=== PATIENT | male | born 1985 | race Caucasian/White ===

== ENCOUNTER 2018-06-09 13:54 | Inpatient (IN) | payer MEDICARE, MEDICAID ==
--- NOTE | 2018-06-09 14:56 | ED ---
Psychiatric Complaint - HPI Summary HPI Summary: Patient is a 32 y/o M presenting to ED under 945 status with [employer] for MHE. Patient is on Abilify but states that he has stopped taking his medication for the past two weeks due to the medication's effects. He states that he is unsure why he was brought in to be evaluated. The patient does claim that he has "attitude" problems and will "say things" when he is confronted by people and when he thinks people are "stalking" him. He is unsure who could have called the police about him. Patient is reluctant to given blood as he is on a vegan diet. Patient does note that he has eaten food today. No thoughts of SI/HI are reported. Patient reports that he smokes a pack of cigarettes a day, endorses rare alcohol usage and denies substance usage. However, sports equipment racker Hina notes that the patient has a history of substance abuse, known schizophrenia, and that the patient has had SI in the past. Patient lives alone in apartment. He denies abdominal pain and trauma. He additionally denies drug allergies and past surgeries in the room. On triage, pain is denied, nothing is noted to aggravate/alleviate Sx. Home medications and allergies are reviewed. - History Of Current Complaint Chief Complaint: EDMentalHealth Time Seen by Provider: 06/09/18 14:34 Hx Obtained From: Patient Onset/Duration: Still Present Timing: Constant Severity Currently: None - pain denied Aggravating Factor(s): Nothing Alleviating Factor(s): Nothing Associated Signs And Symptoms: Positive: Negative Has Suicidal: Denies: Thoughts Has Homicidal: Denies: Thoughts - Allergies/Home Medications Allergies/Adverse Reactions: Allergies Allergy/AdvReac Type Severity Reaction Status Date / Time nut - unspecified Allergy Severe Airway Verified 06/09/18 15:55 Obstruction shellfish derived Allergy Airway Verified 06/09/18 15:54 Obstruction Home Medications: Home Medications NK [No Home Medications Reported] 06/09/18 [History Confirmed 06/09/18] PMH/Surg Hx/FS Hx/Imm Hx Endocrine/Hematology History: Denies: Hx Anticoagulant Therapy, Hx Diabetes, Hx Thyroid Disease Cardiovascular History: Denies: Hx Hypertension, Hx Pacemaker/ICD Respiratory History: Denies: Hx Asthma, Hx Chronic Obstructive Pulmonary Disease (COPD) History: Denies: Hx Renal Disease Neurological History: Denies: Hx Dementia, Hx Seizures Psychiatric History: Reports: Hx Anxiety, Hx Depression, Hx Inpatient Treatment , Hx Community Mental Health Tx, Hx Schizophrenia, Hx Suicide Attempt - 3 years ago, Hx Substance Abuse, Other Psychiatric Issues/Disorders - schizoaffective Denies: Hx Eating Disorder, Hx of Violent Episodes Against Others Infectious Disease History: No Infectious Disease History: Reports: Hx Hepatitis Denies: Hx Human Immunodeficiency Virus (HIV), Traveled Outside the [place] in Last 30 Days - Family History Known Family History: Positive: Hypertension - Social History Alcohol Use: Rare Substance Use Type: Reports: None Smoking Status (MU): Light Every Day Tobacco Smoker Type: Cigarettes Amount Used/How Often: 1/2 ppd Have You Smoked in the Last Year: Yes Review of Systems Negative: Abdominal Pain Musculoskeletal: Other - NEGATIVE - RECENT TRAUMA Psychological: Other - PATIENT DENIES SI/HI All Other Systems Reviewed And Are Negative: Yes Physical Exam Vital Signs On Initial Exam: Initial Vitals Temp Pulse Resp BP Pulse Ox 99.4 F 94 16 122/84 100 06/09/18 14:06 06/09/18 14:06 06/09/18 14:06 06/09/18 14:06 06/09/18 14:06 Diagnostics - Vital Signs Vital Signs Temp Pulse Resp BP Pulse Ox 06/09/18 14:06 99.4 F 94 16 122/84 100 - Laboratory Lab Statement: Any lab studies that have been ordered have been reviewed, and results considered in the medical decision making process. Re-Evaluation - Re-Evaluation First Eval Re-Evaluation Time: 15:15 Comment: sports equipment racker Hina has spoken to patient's mother,who was the one who called police. Mother reported that the patient has actually stopped taking his medication months ago. He has since become increasingly paranoid and aggressive, laughing to himself, ranting/rambling in public areas, yelling slurs at people, trashing his apartment, and walking into traffic. Course/Dx - Differential Dx/Clinical Impression Provider Diagnosis: Schizophrenia - Physician Notifications Discussed Care Of Patient With: Yosef Abbasi Time Discussed With Above Provider: 15:48 Instructed by Provider To: Other - Patient's case was reviewed by Dr. Abbasi, patient will be admitted to [facility] under 939 status. Discharge - Sign-Out/Discharge Documenting (check all that apply): Patient Departure - admit Patient Received Moderate/Deep Sedation with Procedure: No - Discharge Plan Condition: Good Disposition: PSYCHIATRIC FACILITY-[facility] Referrals: No Primary Care Phys,NOPCP [Primary Care Provider] - - Attestation Statements Document Initiated by Scribe: Yes Documenting Scribe: CEE DUDLEY Provider For Whom Scribe is Documenting (Include Credential): ADEBAYO RASHEED MD Scribe Attestation: ICEE, scribed for ADEBAYO RASHEED MD on 06/09/18 at 1701. Status of Scribe Document: Ready
[2018-06-09] MEDS ORDERED: Acetaminophen TAB* 325 MG PO PRN (15:45)
[2018-06-09] MEDS ORDERED: Al Hydrox/Mg Hydrox/Simet LIQ* 30 ML UDC PO PRN (15:45)
[2018-06-09] MEDS ORDERED: Haloperidol TAB* 5 MG PO PRN (15:48)
[2018-06-09] MEDS ORDERED: LORazepam TAB(*) 1 MG PO PRN (15:48)
[2018-06-09] MEDS ORDERED: ARIPiprazole TAB* 15 MG PO ONE (15:49)
--- NOTE | 2018-06-10 18:02 | HP ---
PSYCHIATRIC HISTORY AND PHYSICAL: DATE OF ADMISSION: 06/09/18 JUSTIFICATION FOR ADMISSION: The patient is in need of 24-hour supervision and care secondary to psychotic disorganization and inability to care for himself in a less restrictive setting. CHIEF COMPLAINT: "I don't feel like I need to be here, I don't feel like I need to conform to society's expectations." HISTORY OF PRESENT ILLNESS: The patient is a 32-year-old single, homosexual, male with a history of schizoaffective disorder, who was brought in by the police on a 9.45 legal status initiated by the [facility] due to increasingly erratic psychotic behavior in the context of nonadherence with injectable antipsychotic since February 2018. Before meeting the patient I reached out to his therapist at [facility], Ishaan Harkins. That clinician reports that the clinic has been receiving multiple phone calls from concerned citizens who will often interact with the patient in the [facility] where he has been described as provocative, getting into people's personal space, waving his hands at them, making racial slurs, and being generally insultive. There is also a report from the [place] [employer] that he had been observed walking haphazardly in traffic. They also noted that he has been dropping weight and that his apartment is trashed and filled with urine bottles. His last Abilify injection was delivered on 02/26/18 , but thereafter he started refusing to take it. He did contact therapist, Isahan Harkins, to schedule therapy appointments thereafter, but never showed up at the clinic. For collateral I also spoke with the patient's mother, whose name is Grecia Polanco. She reports that for several years, he has been stable on Abilify Maintena injections and that she felt he had earned the right within the last year to start going to those appointments by himself, whereas in the past she used to have to accompany him. She did know that since March, he has been refusing the medications and she did not feel there was anything that she could do. Over the past 3 weeks, she noticed that he started speaking in a strange [place]ots[place] accent and accusing friends of being rapists. He has also been accusing passing motorists of killing Muslims because the oil that pimentel their car was stolen from Islamic countries through war and violence. He has expressed the belief that people were trying to gas him with their cars. The patient has been losing weight and the mother estimates the weight loss to have been approximately 30 pounds. He has been seen in public mumbling to himself, wandering into traffic, laughing one moment hysterically and at other times screaming at others. His mother apparently entered his apartment and noted that several of his belongings had been given away to others prompting her to wonder whether he has become suicidal. She also discovered cigarette joe in the mattress and on his clothing. He had also placed knives in various spots of the apartment, particularly near his bed, and barricaded the front door. The mother had a smith and was able to enter through the back entry way and discovered that there was no food in the apartment, but several empty bottles and containers of liquor and beer. She indicates that the patient has not been sleeping, has been walking miles. This is risky given the fact that he has a history of walking to both [place] and to [facility] before during prior psychotic episodes. She notes that he expresses at times that he can stop traffic with his mind and he screams at his mother that she will be killed by wizards. She discovered journal entries in his apartment that related to the subject of and he had drawn several violent images. When I meet with the patient, he is minimizing all of these reports and states that he does not trust his mother and is not close with her. He does not feel that her concerns are valid. He speaks vaguely about concerns about people damaging the environment and not wanting to exist in a reality that is forced upon him by society. He denies suicidal or homicidal ideations. He denies auditory or visual hallucinations. At times on our unit so far, he is seen responding to internal stimuli, laughing to himself and making odd statements such as that he perceives that staff members have "cat eyes." PAST PSYCHIATRIC HISTORY: Includes somewhere between 10 and 11 lifetime hospitalizations, most of which have been here at [facility]. He has also been hospitalized 3 times at [facility], at least once at [facility] in 2009 which was his first hospitalization, and at least once at [facility] in [place]. His last hospitalization was briefly in 2016 for suicidal ideations. In the past, he has had thoughts of cutting his wrists, although he has no significant attempts. He did use to burn cigarettes on his body. He was followed by the ACT team for 3 years following 2012 and then discharged, was treated at the [facility]. In the past, he has been treated with Risperdal, lithium, Depakote, as well as antidepressants which apparently caused dayanara. SUBSTANCE ABUSE HISTORY: Significant for alcohol abuse, cannabis, LSD, mushrooms, synthetic marijuana. He has used cocaine. He has tried methamphetamines as well as heroin. He smokes 1 or 2 cigarettes per day. He denies any history of rehab or detox treatment. PAST MEDICAL HISTORY: Noncontributory. FAMILY HISTORY: Denied by the patient. SOCIAL HISTORY: The patient was born and raised in [place], raised by both parents. He has an older sister, who is 4 years older. He did graduate from high school and studied journalism at [employer] for 2 years, but does not work. He identifies as homosexual, but is not currently in any relationship. He has never been , has no children. He has had periods of homelessness in the past, but currently lives in [facility] in a [address] supported apartment. He has a significant legal history of shoplifting and is well known to the local police department. REVIEW OF SYSTEMS: The patient denies headache or double vision. He denies sore throat, cough, chest pain, difficulty breathing. He denies abdominal pain , nausea, vomiting, diarrhea, or constipation. Denies difficulty ambulating, enlarged lymph nodes, fevers, or rashes. He does acknowledge a 30-pound weight loss, but he states this is because he has converted to a raw vegan diet. PHYSICAL EXAMINATION VITAL SIGNS: The patient's blood pressure is 113/82, heart rate 86, respiratory rate 16, temperature is 98.6 degrees Fahrenheit, oxygen saturations are 100% on room air. HEENT: Head is normocephalic, atraumatic. CHEST: Clear to auscultation bilaterally. CARDIAC: Exam reveals normal heart sounds. ABDOMEN: Soft and nontender. MUSCULOSKELETAL: Exam reveals no sign of edema. NEUROLOGICAL: He is grossly intact with no focal deficits. SKIN: Warm and dry. LABORATORY DATA: The patient has refused both blood and urine lab studies. MENTAL STATUS EXAMINATION: The patient is a young, , part white, part -Bhutanese male with long hair that is tucked under a hooded sweatshirt. He has tattoos prominently under his eyes and on his taoism. He is bearded. He is somewhat effeminate, is dressed in black tights, makes somewhat limited eye contact. Speech is pressured at times with an extensive vocabulary. Mood appears to be manic with a slightly irritable affect. Thought process is tangential. Thought content is significant for his unhappiness at being admitted and paranoid ideations about people destroying the environment and killing Muslims. He denies suicidal or homicidal ideations. He denies auditory or visual hallucinations. He is observed at times responding to internal stimuli. Insight and judgment are markedly impaired given his obvious lack of self-care. Cognitively, the patient is awake and alert with what would appear to be a somewhat high average intellect given his academic history. DIAGNOSES: As follows: Gratiot I: Schizoaffective disorder, bipolar type. Gratiot II: Cluster B traits. IMPRESSION: The patient is a 32-year-old , homosexual male with a history of schizoaffective disorder, who was brought to the hospital by the police on a 9.45 legal status having been signed by the [facility] due to community concerns that the patient is increasingly agitated, disorganized and lacking in self-care in the setting of several months of nonadherence with antipsychotic medications. Currently, he continues to accept medication for his mental health condition. In addition, he is refusing labs for both blood and urine studies. He is refusing to comply with milieu expectations. PLAN: The patient is admitted to the adult behavioral health unit and placed on q.15 minute checks for his own safety. We will write an order for Abilify Initio, which is a 675 mg intramuscular injection and strongly encourage the patient to adhere with this. He is also encouraged to avail himself of all unit and milieu activities including individual and group psychotherapies. We will continue to reach out to his mother and to the mental health clinic for further collateral information. It is not clear at this point whether we will be pursuing treatment over his objection as I would like to give the patient an opportunity to take medications voluntarily. It certainly does sound dangerous in terms of him not eating and darting into traffic. The fact that he will not accept labs is concerning because we cannot check his protein status or his urine ketones to see if he is in a starvation mode. Dietary intake will be monitored at this point forward. [id number]/[facility] #: [id number] KERRI
[2018-06-11] MEDS ORDERED: Nicotine GUM* 2 MG ONE (06:44)
[2018-06-11] MEDS ORDERED: ARIPiprazole TAB* 15 MG PO ONE (16:04)
--- NOTE | 2018-06-11 16:10 | PN ---
Subjective - Subjective Date of Service: 06/11/18 Service Type: 86432 Hosp care 15 min low complexity Subjective: Oj continues to be bizarre and attention seeking, although not overtly violent or threatening. He is speaking with a Jordanian accent when I first engage with him and I note that he has drawn an odd picture and taped it to his door. It is a depiction of a car with the words "My Cars" written on the side being eaten by a mouth that has fangs. "Oh, it's nothing. It's just about how I feel about cars and how they're polluting our environment." He is strongly requesting discharge, which I mention that I would consider after the weekend, provided that he agreed to resume injectable aripiprazole treatment. He agrees to this and still denies SI or HI. Objective - General Observations Appearance: Unkempt Appears Stated Age: No Stature: Thin Posture: WNL Eye Contact: Average Behavior/Activity: WNL - Interaction Observations Attitude Towards Examiner: Cooperative Stated Mood: Expansive Affect: Full Speech Pattern/Tone: Clear Thought Process: Disorganized Perception: WNL Thought Content: Preoccupation/Ruminations Thought Process: Lethality: Paranoid Ideation Hallucination Type: None Delusion Type: Sabianist - Cognitive Function Orientation: A&O x 4 Level of Consciousness: Awake Cognition: WNL Estimated Intelligence: Normal Insight: Difficulty Acknowledging Presence of Psyciatric Problems Judgment Within Normal Limits: No Ability to Make Reasonable Decisions: Serverely Impaired - Medication Compliance Cooperative with Inpatient Medication Regimen: No - Group Participation Participates in Group Activities: No Assessment - Assessment Merits Inpatient Hospitalization: For Immediate Safety, For Stabilization Inpatient DSM-V Dx: F25.0 Clinical Impression: 32 y.o. single, homosexual, mixed-race (white and AA) male with a history of schizoaffective DO brought in on an involuntary 9.45 status, as initiated by [facility], due to increasingly bizarre and disorganized behavior in the community in the context of self-discontinuation of injectable monthly antipsychotic treatment. BSU: Problem List - Patient Problems (1) Schizoaffective disorder, manic type Current Visit: No Status: Acute Priority: High Onset Date: 11/15/14 Code (s): F25.0 - SCHIZOAFFECTIVE DISORDER, BIPOLAR TYPE SNOMED Code(s): 649587606 Plan - Plan Treatment Plan: Name: OJ ANDERSEN Birthdate: 1985 [id number] The patient has agreed, after some persuading, to resume antipsychotic therapy with aripiprazole Initio 675mg IM times one (next dose due July 09). If he is behaviorally under control over the weekend we would consider discharge as early as Thursday (04/14). Continued Medication Management: Start Medication Medications: Current Medications Acetaminophen (Tylenol Tab*) 650 mg PO Q4H PRN PRN Reason: for pain; or Temp >101 F Al Hydrox/Mg Hydrox/Simethicone (Maalox Plus*) 30 ml PO Q4H PRN PRN Reason: INDIGESTION Aripiprazole (Abilify Tab*) 30 mg PO ONCE ONE Stop: 06/11/18 16:05 Aripiprazole Lauroxil (Aristada Initio (First Dose)) 675 mg IM ONCE ONE Stop: 06/11/18 16:05 Haloperidol (Haldol Tab*) 5 mg PO Q6H PRN PRN Reason: AGITATION Lorazepam (Ativan Tab(*)) 1 mg PO Q6H PRN PRN Reason: ANXIETY - Discharge Plan Discharge Plan: Inpatient Hospitalization
--- NOTE | 2018-06-13 17:05 | PN ---
Subjective - Subjective Date of Service: 06/12/18 Service Type: 55812 Hosp care 25 min moderate complexity Subjective: Oj is quiet and paces the hallway without any spontanious interaction with others. However, on approach calm and pleasant. Denies hallucinations, delusions or SI/HI. Tolerating meds well and reports it is helping. No nursing concerns. Objective - General Observations Appearance: Well Groomed Appears Stated Age: Yes Stature: WNL Posture: WNL Eye Contact: Avoidant Behavior/Activity: WNL - Interaction Observations Attitude Towards Examiner: Cooperative Stated Mood: Euthymic Affect: Blunted Speech Pattern/Tone: Clear, Appropriate, Normal Volume Thought Process: Coherent, Goal Directed Perception: WNL Thought Content: WNL Hallucination Type: None Delusion Type: None - Cognitive Function Orientation: A&O x 4 Level of Consciousness: Awake, Alert, Appropriate Cognition: WNL Estimated Intelligence: Normal Insight: Difficulty Acknowledging Presence of Psyciatric Problems Judgment Within Normal Limits: Yes Ability to Make Reasonable Decisions: Mildly Impaired - Medication Compliance Cooperative with Inpatient Medication Regimen: Yes - Group Participation Participates in Group Activities: No Assessment - Assessment Merits Inpatient Hospitalization: For Stabilization, Consolidate Improvements, Pending Safe DC Plan Inpatient DSM-V Dx: F25.0 Clinical Impression: 32 y.o. single, homosexual, mixed-race (white and AA) male with a history of schizoaffective DO brought in on an involuntary 9.45 status, as initiated by [facility], due to increasingly bizarre and disorganized behavior in the community in the context of self-discontinuation of injectable monthly antipsychotic treatment. Plan - Plan Treatment Plan: Name: OJ ANDERSEN Birthdate: 1985 [id number] The patient has agreed, after some persuading, to resume antipsychotic therapy with aripiprazole Initio 675mg IM times one (next dose due July 09). If he is behaviorally under control over the weekend we would consider discharge as early as Thursday (04/14). Continued Medication Management: Continue Outpt Medication Medications: Current Medications Acetaminophen (Tylenol Tab*) 650 mg PO Q4H PRN PRN Reason: for pain; or Temp >101 F Al Hydrox/Mg Hydrox/Simethicone (Maalox Plus*) 30 ml PO Q4H PRN PRN Reason: INDIGESTION Haloperidol (Haldol Tab*) 5 mg PO Q6H PRN PRN Reason: AGITATION Lorazepam (Ativan Tab(*)) 1 mg PO Q6H PRN PRN Reason: ANXIETY - Discharge Plan Discharge Plan: Outpatient Follow Up Outpatient Program: [facility]
[2018-06-14 10:34] VITALS: BP 108/65
--- NOTE | 2018-06-15 01:25 | DS ---
DISCHARGE SUMMARY: DATE OF ADMISSION: 06/09/18 DATE OF DISCHARGE: 06/14/18 DISCHARGE DIAGNOSES: As follows: Mooers I: Schizoaffective disorder, bipolar type. Mooers II: Cluster B traits. CONDITION AT THE TIME OF DISCHARGE: Improved. The patient has tolerated the resumption of Abilify with an injection of aripiprazole initio at the 675 mg dose. He has been calm, cooperative, sleeping well, interacting appropriately with others. We have seen no evidence whatsoever of dangerousness to himself or to peers or staff on the unit. Mele is telling me that the medication is working well for him that he can feel more relaxed and in fact he is sleeping better. He has followups in place with the outpatient mental health clinic here in [facility]. I have kept his mother, whose name is Grecia Salas, apprised of his progress and she was agreeable with the discharge plan. MENTAL STATUS EXAM AT THE TIME OF DISCHARGE: The patient is a young , part white, part male, with long hair that is in dreadlocks and dyed blonde in areas, who is clean, well groomed. He has prominent tattoos under his eyes and on his temples. He is bearded. He is somewhat effeminate but makes good eye contact. Speech has normal rate, tone, and volume. Mood appears to be euthymic with a full affect. Thought process is linear. Thought content is significant for his desire to be discharged from the hospital. He denies suicidal or homicidal ideations. He denies auditory or visual hallucinations. At times, he is observed laughing to himself but not in a preoccupied way that interferes with his interactions with others. Insight and judgment are fair given his willingness to resume outpatient treatment. Cognitively, the patient is awake and alert with what would appeared to be a somewhat high average intellect given his academic history. DISCHARGE INSTRUCTIONS: To the patient are as follows: A. Medications: The patient's next injection of Abilify Maintena 400 mg IM will be due on 07/09/18. B. Diet is regular. The patient is a vegan. C. Activities: As tolerated. The patient is a smoker; however, he is declining continued nicotine replacement therapy. In the event that he would like to quit, we have given him the [facility] Smokers' Quitline, which is toll-free at . There are no laboratory or diagnostic studies pending at the time of discharge. D. Followup care: The patient will be seen at [facility] with his therapist, Ishaan Harkins, on 06/21/18 at 9 a.m. His disposition is that he is returning to his apartment here in [place], [place]. E. Substance abuse followup is nonapplicable. HOSPITAL COURSE: As follows: Part A. Reason for admission: The patient is a 32-year-old single, homosexual , male with a history of schizoaffective disorder who was brought in by the police on a legal status initiated by the [facility] due to increasingly erratic, psychotic behavior in the context of nonadherence with injectable antipsychotic since February 2018. The reports from [facility] that accompanied the were that they have been receiving multiple phone calls from concerned citizens that the patient has been disruptive in the area of the [employer] where he has been provocative, getting into people's personal space, waving his hands at them, making racial slurs, and being generally insultive. There is also a report from the [place] [employer] that he has been observed walking haphazardly in traffic. According to his mother, Ms. Grecia Salas, he stopped taking his Abilify shots after receiving his last in February of this year. Since then, he has been losing weight, increasingly disorganized, mumbling to himself, wandering into traffic. The mother was concerned when she entered his apartment and noted that several of his belongings had been given away. There were cigarette joe on his mattress and on his clothing and he had placed knives in various spots of the apartment and barricaded the front door. In addition, he had deactivated the smoke detectors and there was no food in the house. Upon examination, the patient denied the concerns of others, speaking vaguely about people damaging the environment and not wanting to exist in a reality that is forced upon him by society. He did deny suicidal or homicidal ideations and denied auditory and visual hallucinations; however, he was seen to be responding to internal stimuli, laughing to himself, and making odd statements such as his perceptions that staff members have "cat eyes." Part B: Psychiatric treatment rendered: The patient was admitted to the adult behavioral health unit where he was placed on q.15-minute checks for his own safety. He refused laboratory investigations both in the ED and throughout his stay on the [facility] stating that he has a temple objection to laboratory testing. He was agreeable with the resumption of Abilify treatment. We do not carry the Maintena formulation at this facility and for that reason, he was treated with aripiprazole initio 675 mg IM x1 on 06/11/18. In addition , he took a 1 time dose of oral Abilify 30 mg. The patient tolerated resumption of Abilify quite well. He seemed to sleep better and was responding less to internal stimuli. He was calm and cooperative throughout his hospitalization and we never did observe any signs of violence towards himself or others. At this time, we do not feel justified in keeping him any further against his will and he is appropriately requesting discharge. He is agreeable with following up with [facility]. I have made these findings clear to his mother, Ms. Salas, who expresses understanding of these issues and is in agreement with the discharge plan. Mele has a friend who is coming to pick him up and his next injection is due on 07/09/18. [id number] #: [id number] MTDD
== END 2018-06-14 11:07 | disposition home or self-care (01) | DRG 885 ==
LOC: ED 13:54 → BSU 18:11
PROVIDERS: ADMIT Psychiatry & Neurology Psychiatry; ATTEND Psychiatry & Neurology Psychiatry
DX: F25.0 Schizoaffective disorder, bipolar type (principal); F17.210 Nicotine dependence, cigarettes, uncomplicated; F12.10 Cannabis abuse, uncomplicated; F10.10 Alcohol abuse, uncomplicated; F11.10 Opioid abuse, uncomplicated
CPT/HCPCS: 99222; 99231; 99232; 99238; 99284; A9270-GY

== ENCOUNTER 2019-08-07 11:32 | Inpatient (IN) ==
[2019-08-07] MEDS ORDERED: LORazepam 2 mg VIAL 1 ml ONE ×2 (14:35→14:41)
[2019-08-07] MEDS ORDERED: diPHENhydraMINE IV 50 MG/ML 1 ml VIAL (BENADRYL) ONE (14:41)
[2019-08-07] MEDS ORDERED: Haloperidol 5 mg/ml SDV IV/IM 5 MG/ML AMP ONE ×2 (14:42→14:44)
[2019-08-07] MEDS ORDERED: DIPHENHYDRAMINE ONE (14:44)
[2019-08-07 15:04] LABS: ABS Basophils 0.1 10^3/ul (0-0.2); ABS Eosinophils 0.3 10^3/ul (0-0.6); ABS Lymphocytes 4.3 10^3/ul (1.0-4.8); ABS Monocytes 1.4 10^3/ul (0-0.8); Eosinophil % 2.2 %; Hematocrit 44 % (42-52); Hemoglobin 15.1 g/dL (14.0-18.0); Mean Corpuscular HGB Conc 34 g/dL (31-36); Mean Corpuscular Hemoglobin 31 pg (27-31); Mean Corpuscular Volume 91 fL (80-94); Mean Platelet Volume 7.3 fL (7.4-10.4); Platelet Count 372 10^3/uL (150-450); Red Blood Count 4.84 10^6 /uL (4.18-5.48); Red Cell Distribution Width 13 % (10-15); White Blood Count 13.4 10^3/uL (3.5-10.8)
[2019-08-07 15:28] LABS: ALT 30 U/L (7-52); Albumin 4.7 g/dL (3.2-5.2); Albumin/Globulin Ratio 1.5 (1-3); Alkaline Phosphatase 89 U/L (34-104); BUN/Creatinine Ratio 9.8 (8-20); Blood Urea Nitrogen 14 mg/dL (6-24); CO2 Carbon Dioxide 18 mmol/L (22-32); Calcium 10.1 mg/dL (8.6-10.3); Chloride 102 mmol/L (101-111); EGFR African American 68.1 (>60); EGFR Non-African American 56.3 (>60); Globulin 3.2 g/dL (2-4); Glucose 110 mg/dL (70-100); Sodium 141 mmol/L (135-145); Total Protein 7.9 g/dL (6.4-8.9)
[2019-08-07 15:31] LABS: AST 30 U/L (13-39); Anion Gap 21 mmol/L (2-11); Potassium 3.9 mmol/L (3.5-5.0)
[2019-08-07 15:42] LABS: Acetaminophen < 15 mcg/mL; Alcohol, S < 10 mg/dL (<10); Salicylate < 2.50 mg/dL (<30)
[2019-08-07 15:56] LABS: TSH (Thyroid Stimulating Horm) 0.88 mcIU/mL (0.34-5.60)
[2019-08-08] MEDS ORDERED: Al Hydrox/Mg Hydrox/Simet LIQ 30 ML UDC PO PRN (10:04)
[2019-08-09] MEDS ORDERED: Nicotine GUM 2MG FRUIT FLAVOR PO PRN (16:40)
[2019-08-09] MEDS: Nicotine PATCH 14 MG/24 HR PATCH TRANSDERM SCH (18:55)
[2019-08-10] MEDS: Nicotine PATCH 14 MG/24 HR PATCH TRANSDERM SCH (09:20)
[2019-08-11 09:51] VITALS: BP 135/60
[2019-08-11] MEDS: Nicotine PATCH 14 MG/24 HR PATCH TRANSDERM SCH (10:44)
[2019-08-12] MEDS: Nicotine PATCH 14 MG/24 HR PATCH TRANSDERM SCH (08:51)
== END 2019-08-12 13:35 | disposition home or self-care (01) | DRG 885 ==
LOC: ED 11:32 → BSU 08-08 12:46
PROVIDERS: ADMIT Psychiatry & Neurology Psychiatry; ATTEND Psychiatry & Neurology Psychiatry

== ENCOUNTER 2019-12-20 17:17 | Inpatient (IN) ==
[2019-12-20] MEDS ORDERED: LORazepam 2 mg VIAL 1 ml ONE (18:33)
[2019-12-20] MEDS ORDERED: Haloperidol 5 mg/ml SDV IV/IM 5 MG/ML AMP ONE (19:20)
[2019-12-20] MEDS ORDERED: diPHENhydraMINE IV 50 MG/ML 1 ml VIAL (BENADRYL) ONE (19:20)
[2019-12-20 20:49] LABS: ABS Basophils 0.1 10^3/ul (0-0.2); ABS Eosinophils 0.2 10^3/ul (0-0.6); ABS Lymphocytes 2.3 10^3/ul (1.0-4.8); ABS Monocytes 0.7 10^3/ul (0-0.8); Eosinophil % 2.5 %; Hematocrit 40 % (42-52); Hemoglobin 14.2 g/dL (14.0-18.0); Lymphocyte % 31.6 %; Mean Corpuscular HGB Conc 35 g/dL (31-36); Mean Corpuscular Hemoglobin 31 pg (27-31); Mean Corpuscular Volume 88 fL (80-94); Platelet Count 362 10^3/uL (150-450); Red Blood Count 4.57 10^6 /uL (4.18-5.48); Red Cell Distribution Width 14 % (10-15); White Blood Count 7.3 10^3/uL (3.5-10.8)
[2019-12-20 21:06] LABS: ALT 181 U/L (7-52); Albumin 4.3 g/dL (3.2-5.2); Albumin/Globulin Ratio 1.5 (1-3); Alkaline Phosphatase 85 U/L (34-104); BUN/Creatinine Ratio 11.8 (8-20); Blood Urea Nitrogen 12 mg/dL (6-24); CO2 Carbon Dioxide 27 mmol/L (22-32); Calcium 9.5 mg/dL (8.6-10.3); Chloride 104 mmol/L (101-111); EGFR Non-African American 82.6 (>60); Globulin 2.9 g/dL (2-4); Glucose 93 mg/dL (70-100); Sodium 136 mmol/L (135-145); Total Protein 7.2 g/dL (6.4-8.9)
[2019-12-20 21:12] LABS: Anion Gap 5 mmol/L (2-11); Potassium 4.2 mmol/L (3.5-5.0)
[2019-12-20 21:13] LABS: AST 88 U/L (13-39)
[2019-12-20 21:20] LABS: Acetaminophen < 15 mcg/mL; Alcohol, S < 10 mg/dL (<10); Salicylate < 2.50 mg/dL (<30)
[2019-12-20 21:36] LABS: TSH Ultra Thyroid Stim Horm 0.73 mcIU/mL (0.34-5.60)
[2019-12-21] MEDS ORDERED: Al Hydrox/Mg Hydrox/Simet LIQ 30 ML UDC PO PRN (09:04)
[2019-12-22 09:07] VITALS: BP 107/54
== END 2019-12-22 12:20 | disposition home or self-care (01) | DRG 885 ==
LOC: ED 17:17 → BSU 12-21 09:04
PROVIDERS: ADMIT Psychiatry & Neurology Psychiatry; ATTEND Psychiatry & Neurology Psychiatry

== ENCOUNTER 2020-12-31 14:12 | Inpatient (IN) ==
[2020-12-31] MEDS ORDERED: LORazepam 2 mg VIAL 1 ml IM ONE (14:13)
[2020-12-31] MEDS ORDERED: Haloperidol 5 mg/ml SDV IV/IM 5 MG/ML AMP IV SLOW PU ONE (14:13)
[2020-12-31] MEDS ORDERED: Lorazepam PYXIS KEY PRN (14:13)
[2020-12-31] MEDS ORDERED: diPHENhydraMINE IV 50 MG/ML 1 ml VIAL (BENADRYL) IM ONE (14:14)
[2020-12-31] MEDS ORDERED: diPHENhydraMINE IV 50 MG/ML 1 ml VIAL (BENADRYL) ONE (14:16)
[2020-12-31] MEDS ORDERED: LORazepam 2 mg VIAL 1 ml ONE (14:16)
[2020-12-31 16:44] LABS: ABS Basophils 0.1 10^3/ul (0-0.2); ABS Eosinophils 0.2 10^3/ul (0-0.6); ABS Lymphocytes 2.4 10^3/ul (1.0-4.8); ABS Monocytes 0.8 10^3/ul (0-0.8); ABS Neutrophils 6.1 10^3/ul (1.5-7.7); Eosinophil % 2.3 %; Hematocrit 44 % (42-52); Hemoglobin 15.2 g/dL (14.0-18.0); Lymphocyte % 24.8 %; Mean Corpuscular HGB Conc 34 g/dL (31-36); Mean Corpuscular Hemoglobin 31 pg (27-31); Mean Corpuscular Volume 90 fL (80-94); Mean Platelet Volume 6.7 fL (7.4-10.4); Platelet Count 354 10^3/uL (150-450); Red Blood Count 4.93 10^6 /uL (4.18-5.48); Red Cell Distribution Width 14 % (10-15); White Blood Count 9.6 10^3/uL (3.5-10.8)
[2020-12-31 17:19] LABS: ALT 54 U/L (7-52); Albumin 4.1 g/dL (3.2-5.2); Albumin/Globulin Ratio 1.4 (1-3); Alkaline Phosphatase 76 U/L (35-149); Blood Urea Nitrogen 9 mg/dL (6-24); CO2 Carbon Dioxide 29 mmol/L (22-32); Calcium 9.6 mg/dL (8.6-10.3); Chloride 104 mmol/L (101-111); Glucose 93 mg/dL (70-100); Sodium 138 mmol/L (135-145); Total Protein 7.1 g/dL (6.4-8.9)
[2020-12-31 17:27] LABS: Anion Gap 5 mmol/L (2-11)
[2020-12-31 17:33] LABS: TSH Ultra Thyroid Stim Horm 1.07 mcIU/mL (0.34-5.60)
[2020-12-31 17:52] LABS: Alcohol, S < 13 mg/dL (<13); Salicylate < 2.50 mg/dL (<30)
[2020-12-31 17:59] LABS: Acetaminophen < 15 mcg/mL
[2021-01-01] MEDS ORDERED: Al Hydrox/Mg Hydrox/Simet LIQ 30 ML UDC PO PRN (09:44)
[2021-01-01] MEDS: Nicotine PATCH 14 MG/24 HR PATCH TRANSDERM SCH (11:40)
[2021-01-01] MEDS ORDERED: LORazepam 2 mg VIAL 1 ml ONE (13:19)
[2021-01-01] MEDS ORDERED: diPHENhydraMINE IV 50 MG/ML 1 ml VIAL (BENADRYL) ONE (13:19)
[2021-01-01] MEDS ORDERED: Haloperidol 5 mg/ml SDV IV/IM 5 MG/ML AMP ONE (13:19)
[2021-01-01] MEDS ORDERED: Lorazepam PYXIS KEY ONE (13:20)
[2021-01-02] MEDS: Nicotine PATCH 14 MG/24 HR PATCH TRANSDERM SCH (09:48)
[2021-01-02] MEDS: Vitamin THERAPEUTIC TAB PO SCH (09:48)
[2021-01-03] MEDS ORDERED: Nicotine GUM 4MG FRUIT FLAVOR PO PRN (11:37)
[2021-01-03] MEDS: Nicotine PATCH 14 MG/24 HR PATCH TRANSDERM SCH (16:12)
[2021-01-03] MEDS: Vitamin THERAPEUTIC TAB PO SCH (16:12)
[2021-01-03 16:31] VITALS: BP 86/55
[2021-01-04 10:29] LABS: Rapid COVID-19 Molecular Undetected (Undetected)
[2021-01-04] MEDS: Vitamin THERAPEUTIC TAB PO SCH (10:49)
[2021-01-04] MEDS: Nicotine PATCH 14 MG/24 HR PATCH TRANSDERM SCH (10:49)
== END 2021-01-04 12:15 | disposition home or self-care (01) | DRG 885 ==
LOC: ED 14:12 → BSU 01-01 10:59
PROVIDERS: ADMIT Psychiatry & Neurology Psychiatry; ATTEND Psychiatry & Neurology Psychiatry

== ENCOUNTER 2023-09-15 18:35 | Inpatient (IN) ==
[2023-09-15] MEDS ORDERED: LORazepam 2 mg VIAL 1 ml ONE ×2 (18:57→19:00)
[2023-09-15] MEDS ORDERED: Haloperidol 5 mg/ml SDV IV/IM 5 MG/ML AMP ONE (19:00)
[2023-09-15] MEDS: Haloperidol 5 mg/ml SDV IV/IM 5 MG/ML AMP IM ONE (20:33)
[2023-09-15] MEDS: LORazepam 2 mg VIAL 1 ml IM ONE (20:33)
[2023-09-15 21:22] LABS: ABS Eosinophils 0.3 10^3/uL (0.0-0.5); ABS Lymphocytes 2.5 10^3/uL (1.0-4.8); ABS Monocytes 0.5 10^3/uL (0.0-1.1); ABS Neutrophils 3.3 10^3/uL (1.5-7.6); Eosinophil % 4.1 %; Hematocrit 43.2 % (38-53); Mean Corpuscular Hemoglobin 29.8 pg (27-33); Mean Corpuscular Hgb Conc 32.4 g/dL (31-36); Mean Platelet Volume 7.1 fL (7.5-11.2); Platelet Count 213 10^3/uL (150-450); Red Cell Distribution Width 13.8 % (12-17); White Blood Count 6.5 10^3/uL (3.6-10.2)
[2023-09-15 21:55] LABS: ALT 57 U/L (7-52); AST 44 U/L (13-39); Acetaminophen < 15 mcg/mL; Albumin 3.9 g/dL (3.2-5.2); Albumin/Globulin Ratio 1.6 (1-3); Alcohol, S 13 mg/dL (<13); Alkaline Phosphatase 76 U/L (35-149); Anion Gap 9 mmol/L (2-16); Blood Urea Nitrogen 13 mg/dL (6-24); CO2 Carbon Dioxide 27 mmol/L (22-32); Calcium 9.2 mg/dL (8.6-10.3); Chloride 106 mmol/L (101-111); Creatinine, Serum 1.08 mg/dL (0.67-1.17); Globulin 2.5 g/dL (2-4); Glucose 84 mg/dL (70-100); Salicylate < 2.50 mg/dL (<30); Sodium 142 mmol/L (135-145); Total Bilirubin 0.9 mg/dL (0.2-1.0); Total Protein 6.4 g/dL (6.4-8.9); eGFR CKD-EPI 89.5 (>60)
[2023-09-15 22:09] LABS: TSH Ultra Thyroid Stim Horm 0.56 mcIU/mL (0.34-5.60)
[2023-09-15] MEDS: Lactated Ringers 1000 ml BAG 1,000 ML IV SCH (23:34)
[2023-09-16] MEDS ORDERED: Al Hydrox/Mg Hydrox/Simet LIQ 30 ML UDC PO PRN (09:13)
[2023-09-16 12:58] VITALS: BP 113/66
[2023-09-17] MEDS: ARIPiprazole LAUROXIL INITIO 675 MG/2.4 ML SYRINGE IM ONE (14:12)
[2023-09-17] MEDS: ARIPiprazole LAUROXIL 882mg/3.2 ml SYRINGE IM ONE (14:12)
== END 2023-09-18 13:00 | disposition home or self-care (01) | DRG 885 ==
LOC: ED 18:35 → EDHOLD 09-16 09:13 → BSU 09-16 12:18
PROVIDERS: ADMIT Psychiatry & Neurology Psychiatry; ATTEND Student in an Organized Health Care Education/Training Program